=== PATIENT | male | born 2000 | race African-American/Black ===

== ENCOUNTER 2024-03-05 11:19 | Emergency (ER) | payer OTHER ==
[~2024-03-05] VITALS: Ht 175.3 cm; Wt 62.2 kg
[2024-03-05 14:52] VITALS: BP 115/62; PULSE 59; RESP 18; TEMP 98.1; O2SAT 98
== END 2024-03-05 14:58 | disposition home or self-care (01) ==
LOC: ER 11:19
DX: S09.8XXA Other specified injuries of head, initial encounter (principal); X58.XXXA Exposure to other specified factors, initial encounter; Y93.89 Activity, other specified; Y92.89 Other specified places as the place of occurrence of the external cause; Y99.8 Other external cause status
CPT/HCPCS: 70450